=== PATIENT | male | born 1990 | race Caucasian/White ===

== ENCOUNTER 2022-10-10 22:03 | Emergency (ER) | payer OTHER ==
[~2022-10-10] VITALS: Ht 170.2 cm; Wt 81.6 kg
[2022-10-10 22:24] VITALS: BP 122/82
--- NOTE | 2022-10-11 00:26 | NUR ---
urine walked to lab.
[2022-10-11 01:19] LABS: APPEARANCE,URINE CLOUDY (CLEAR); BILIRUBIN,URINE NEGATIVE (NEGATIVE); BLOOD, URINE 1+ (NEGATIVE); COLOR,URINE YELLOW (YELLOW); LEUKOCYTE ESTERASE ,URINE 1+ (NEGATIVE); NITRITE, URINE NEGATIVE (NEGATIVE); UGLUCOSE NEGATIVE (NEGATIVE)
[2022-10-11 01:31] LABS: WBC,URINE TOO MANY TO COUNT /HPF (0-5)
--- NOTE | 2022-10-11 02:44 | NUR ---
PT TO BED 07
[2022-10-11] MEDS ORDERED: AZITHROMYCIN 250 MG TAB PO ONE (02:45)
[2022-10-11] MEDS ORDERED: cefTRIAXone 1,000 MG in LIDOCAINE MPF 1% 2.1 ML IM ONE (02:45)
--- NOTE | 2022-10-11 02:48 | NUR ---
ASSUMED CARE, PT C/O PAINFUL URINATION, REPORTS PUS WITH URINE , SEXUALLY ACTIVE, UNPROTECTED SEX, NO FEVER
[2022-10-11] MEDS ORDERED: cefTRIAXone 1,000 MG VIAL ONE (02:51)
[2022-10-11] MEDS ORDERED: LIDOCAINE MPF 1% 5 ML ONE (02:52)
[2022-10-11] MEDS ORDERED: DOXY-745 PO (03:35)
[2022-10-11 03:40] VITALS: BP 122/82
--- NOTE | 2022-10-11 03:40 | NUR ---
D/C BY . PRESCRIBED DOXYCYCLINE
--- NOTE | 2022-10-11 11:22 | NUR ---
LATE ENTRY RECEIVED POSITIVE URINE RESULTS +GONORRHEA, MADE AWARE, TREATMENT APPROPRIATE
== END 2022-10-11 03:40 | disposition home or self-care (01) ==
LOC: MED 22:03
DX: R30.0 Dysuria (principal); N48.89 Other specified disorders of penis
CPT/HCPCS: 81001; 87086; 87491; 96372; 99283; J0696; J2001

== ENCOUNTER 2023-03-24 10:11 | Emergency (ER) | payer OTHER ==
[~2023-03-24] VITALS: Ht 170.2 cm; Wt 71.2 kg
[~2023-03-24 10:11] MED LIST: DOXY-745 PO
[2023-03-24 10:22] VITALS: BP 146/87; PULSE 102; RESP 20; TEMP 98; O2SAT 98
== END 2023-03-24 11:44 | disposition left against medical advice (07) ==
LOC: MED 10:11
DX: S01.91XA Laceration without foreign body of unspecified part of head, initial encounter (principal); Z53.21 Procedure and treatment not carried out due to patient leaving prior to being seen by health care provider; W26.8XXA Contact with other sharp object(s), not elsewhere classified, initial encounter; Y93.89 Activity, other specified; Y92.89 Other specified places as the place of occurrence of the external cause; Y99.8 Other external cause status
CPT/HCPCS: 99281

== ENCOUNTER 2023-03-24 16:56 | Emergency (ER) | payer OTHER | END 2023-03-24 17:45 | disposition left against medical advice (07) | LOC: MED 16:56 | DX: S01.91XA Laceration without foreign body of unspecified part of head, initial encounter (principal); Z53.21 Procedure and treatment not carried out due to patient leaving prior to being seen by health care provider; X58.XXXA Exposure to other specified factors, initial encounter; Y93.89 Activity, other specified; Y92.89 Other specified places as the place of occurrence of the external cause; Y99.8 Other external cause status ==

== ENCOUNTER 2023-05-14 17:27 | Emergency (ER) | payer OTHER ==
[~2023-05-14] VITALS: Ht 170.2 cm; Wt 80.3 kg
[2023-05-14 17:39] VITALS: BP 132/88; PULSE 91; RESP 20; TEMP 98.7; O2SAT 98
[2023-05-14] MEDS ORDERED: BENZ-300 PO (18:56)
[2023-05-14] MEDS ORDERED: IBUP-2213 PO (18:56)
== END 2023-05-14 19:12 | disposition home or self-care (01) ==
LOC: MED 17:27
DX: J04.0 Acute laryngitis (principal); N48.89 Other specified disorders of penis; Z79.899 Other long term (current) drug therapy
CPT/HCPCS: 99281